=== PATIENT | female | born 1995 | race Hispanic/Latino ===

== ENCOUNTER 2021-11-18 10:36 | Emergency (ER) | payer OTHER ==
[2021-11-18] MEDS ORDERED: HYDROcodone/Acetaminophen 5/325 mg Tablet ONE (11:19)
== END 2021-11-18 11:16 | disposition home or self-care (01) ==
LOC: CSHERS 10:36
DX: S90.561A Insect bite (nonvenomous), right ankle, initial encounter (principal); L03.115 Cellulitis of right lower limb; W57.XXXA Bitten or stung by nonvenomous insect and other nonvenomous arthropods, initial encounter
CPT/HCPCS: 99283

== ENCOUNTER 2021-11-19 15:07 | Emergency (ER) | payer OTHER ==
[2021-11-19] MEDS ORDERED: Bacitracin 1 PK ONE (16:27)
[2021-11-19] MEDS ORDERED: Ibuprofen 200 MG TAB ONE ×2 (16:43→16:48)
== END 2021-11-19 16:40 | disposition home or self-care (01) ==
LOC: CSHERS 15:07
DX: S90.521A Blister (nonthermal), right ankle, initial encounter (principal); L03.115 Cellulitis of right lower limb; X58.XXXA Exposure to other specified factors, initial encounter
CPT/HCPCS: 99283

== ENCOUNTER 2022-04-24 22:18 | Emergency (ER) | payer OTHER ==
[~2022-04-24 22:18] MED LIST: Iopamidol 300 61% 100 ML VIAL FS ONE
[2022-04-24 22:59] LABS: #Basophils 0.1 10x3/uL (0.0-0.2); #Eosinphils 0.2 10x3/uL (0.0-0.5); #Monocytes 0.7 10x3/uL (0.0-1.1); #Neutrophils 4.3 10x3/uL (1.5-8.4); %Basophils 0.6 % (0.0-2.0); %Lymphocytes 33.7 % (18.0-47.0); %Monocytes 8.9 % (0.0-10.0); %Neutrophils 54.3 % (40.0-75.0); Hemoglobin 12.8 g/dL (12.0-15.5); Mean Corpuscular HGB CONC 34.5 g/dL (32.0-36.0); Mean Corpuscular Hemoglobin 30.8 pg (27.0-33.0); Mean Corpuscular Volume 89.4 fl (81.6-98.3); Mean Platelet Volume 10.2 fl (7.4-10.4); Platelet Count 248 10x3/uL (150-450); RBC Distribution Width 12.8 % (11.5-14.5); Red Blood Cell (RBC) Count 4.15 10x6/uL (3.90-5.03); White Blood Cell (WBC) Count 7.9 10x3/uL (3.5-10.5)
[2022-04-24 23:23] LABS: ALT (SGPT) 190 U/L (8-55); AST (SGOT) 135 U/L (5-34); Albumin 4.1 g/dL (3.5-5.0); Alkaline Phosphatase 48 U/L (40-110); Anion Gap 12 mmol/L (10-20); BHCG - Serum Negative (NEGATIVE); BUN (Urea Nitrogen) 7 mg/dL (7.0-18.7); Bilirubin, Total 0.4 mg/dL (0.2-1.2); Calc. Creatinine Clearance 0 mL/min (70-130); Calcium 9.3 mg/dL (7.8-10.44); Carbon Dioxide 23 mmol/L (22-29); Chloride 107 mmol/L (98-107); Estimated GFR 108; Glucose 98 mg/dL (70-105); Lipase 23 U/L (8-78); Potassium 3.7 mmol/L (3.5-5.1); Pregs Control Background? CLEAR/WHITE (CLR/WHITE); Pregs Control Bar Appear? YES (CONTROL BAR); Protein, Total 7.1 g/dL (6.0-8.3); Sodium 138 mmol/L (136-145)
[2022-04-24] MEDS ORDERED: Acetaminophen 500 MG TAB ONE (23:42)
== END 2022-04-25 01:02 | disposition home or self-care (01) ==
LOC: CSHERS 22:18
DX: R10.12 Left upper quadrant pain (principal); R79.89 Other specified abnormal findings of blood chemistry; N83.201 Unspecified ovarian cyst, right side
CPT/HCPCS: 74177; 80053; 83690; 84703; 85025; Q9967

== ENCOUNTER 2022-07-20 12:08 | Emergency (ER) | payer OTHER | END 2022-07-20 13:23 | LOC: CSHERS 12:08 | DX: Z53.21 Procedure and treatment not carried out due to patient leaving prior to being seen by health care provider (principal) ==

== ENCOUNTER 2022-07-23 01:42 | Emergency (ER) | payer OTHER ==
[2022-07-23 04:32] LABS: Pregnancy Test - Urine (BHCG) Negative (Negative); Pregu Control Background? CLEAR/WHITE (CLR/WHITE); Pregu Control Bar Appear? YES (CONTROL BAR); Specific Gravity 1.015 (1.002-1.036)
[2022-07-23 05:56] LABS: Free T4 (Free Thyroxine) 0.87 ng/dL (0.70-1.48); Thyroid Stimulating Hormone 3.3321 uIU/mL (0.35-4.94)
[2022-07-23] MEDS ORDERED: Iopamidol 300 61% 100 ML VIAL FS ONE (15:38)
== END 2022-07-23 06:33 | disposition home or self-care (01) ==
LOC: CSHERS 01:42
DX: E04.1 Nontoxic single thyroid nodule (principal)
CPT/HCPCS: 36415; 70360; 70491; 76536; 81025; 84439; 84443; 87081; 87430; Q9967